=== PATIENT | female | born 1995 ===

== ENCOUNTER 2018-07-07 19:19 | Emergency (ER) | payer MEDICAID, OTHER ==
[2018-07-07 19:19] VITALS: BMI 29.2
--- NOTE | 2018-07-07 20:21 | C.PDOC ---
History Of Present Illness Patient reports recent high BP, taken on her mother's BP machine. States that she was prompted to take her pressure because for the past few days she has felt "weird", as well as fatigued, states "I've been yawning a lot". Reports d iscomfort on the right side of her head, but denies headache, states that "it is hard to explain, it just feels weird". Also reports that sometimes she gets "tingling all over my body". Denies any numbness or weakness to extremities. Able to ambulate. No dizziness, syncope, chest pain, dyspnea, nausea, vomiting. States that she was once diagnosed with HTN when she was several years ago, but has not needed any medication since. Time Seen by Provider: 07/07/18 19:44 Chief Complaint (Nursing): High Blood Pressure History Per: Patient Past Medical History Reviewed: Historical Data, Nursing Documentation, Vital Signs Vital Signs: Last Vital Signs Temp 98.1 F 07/07/18 19:30 Pulse 88 07/07/18 19:30 Resp 18 07/07/18 19:30 BP 160/101 H 07/07/18 19:30 Pulse Ox 97 07/07/18 19:30 - Medical History PMH: HTN Surgical History: No Surg Hx - [facility] Procedures ARTIF RUPT MEMBRANES NEC (03/29/14) MANUAL ASSIST DELIV NEC (03/29/14) MEDICAL INDUCTION LABOR (03/29/14) REPAIR OB LACERATION NEC (03/29/14) Family History: States: Unknown Family Hx - Social History Hx Alcohol Use: No Hx Substance Use: No - Immunization History Hx Tetanus Toxoid Vaccination: Yes Hx Influenza Vaccination: No Hx Pneumococcal Vaccination: No Review Of Systems Except As Marked, All Systems Reviewed And Found Negative. Constitutional: Negative for: Fever Cardiovascular: Negative for: Chest Pain, Palpitations, Light Headedness Respiratory: Negative for: Cough, Shortness of Breath Gastrointestinal: Negative for: Nausea, Vomiting, Abdominal Pain, Diarrhea Genitourinary: Negative for: Dysuria Musculoskeletal: Positive for: Neck Pain Skin: Negative for: Rash Neurological: Negative for: Weakness, Numbness, Change in Speech, Confusion, Altered Mental Status, Headache Physical Exam - Physical Exam Appears: Well, Non-toxic, No Acute Distress Skin: Normal Color, Warm, Dry Head: Atraumatic Eye(s): bilateral: Normal Inspection Oral Mucosa: Moist Neck: Normal, No Midline Cervical Tenderness, No Paracervical Tenderness Chest: Symmetrical, No Deformity Cardiovascular: Rhythm Regular Respiratory: Normal Breath Sounds Gastrointestinal/Abdominal: Normal Exam Neurological/Psych: Oriented x3, Normal Speech, Normal Motor, Normal Sensation Gait: Steady ED Course And Treatment - Laboratory Results Result Diagrams: 07/07/18 20:47 07/07/18 20:47 ECG: Interpreted By Me ECG Rhythm: Sinus Rhythm ECG Interpretation: Normal Interpretation Of ECG: Normal axis, normal intervals, no ST/T changes Rate From EC O2 Sat by Pulse Oximetry: 97 Medical Decision Making Medical Decision Making: Patient given ibuprofen PO for head/neck discomfort. EKG done and was unremarkable. Labs done and were unremarkable as well. Results discussed with patient. Advised outpatient followup for HTN. Return to the ED for any new or worsening symptoms. Repeat BP 140/80, improved without intervention. Stable for discharge home. Disposition - Disposition Disposition: HOME/ ROUTINE Disposition Time: 22:03 Condition: GOOD Additional Instructions: PORTER BUSTILLOS, thank you for letting us take care of you today. Your provider was Alyse Rick MD and you were treated for HIGH BLOOD PRESSURE/HEADACHE. The emergency medical care you received today was directed at your acute symptoms. If you were prescribed any medication, please fill it and take as directed. It may take several days for your symptoms to resolve. Return to the Emergency Department if your symptoms worsen, do not improve, or if you have any other problems. Please contact your doctor or call one of the physicians/clinics you have been referred to that are listed on the Patient Visit Information form that is included in your discharge packet. Bring any paperwork you were given at discharge with you along with any medications you are taking to your follow up visit. Our treatment cannot replace ongoing medical care by a primary care provider outside of the emergency department. Thank you for allowing the [facility] team to be part of your care today. If you had an X-Ray or CT scan: A Radiologist will review the ED reading if any change in treatment is needed we will contact you. If you had a blood, urine, or wound culture: It will take several days for the results, if any change in treatment is needed we will contact you. If you had an STI test: It will take 48 hours for the results. Please call after 1 week if you have not heard back. Prescriptions: Nitrofurantoin Macrocrystals [Macrobid] 100 mg PO BID #14 cap Instructions: High Blood Pressure (DC), Urinary Tract Infection, Adult (DC) Forms: [employer] (Peruvian) - Clinical Impression Clinical Impression: High blood pressure
[2018-07-07 20:52] LABS: BASO # 0.1 K/uL (0.0-0.2); BASO % 1.2 % (0.0-2.0); EOS # 0.2 K/uL (0.0-0.7); EOS % 3.3 % (0.0-4.0); HEMOGLOBIN 13.8 g/dL (11.0-16.0); LYMPH # 2.1 K/uL (1.0-4.3); LYMPH % 44.8 % (20.0-40.0); MEAN CELL VOLUME 93.1 fL (81.0-99.0); MEAN CORPUSCULAR HEMOGLOBIN 30.4 pg (27.0-31.0); MEAN CORPUSCULAR HGB CONC 32.7 g/dL (33.0-37.0); MEAN PLATELET VOLUME 8.8 fL (7.2-11.7); MONO # 0.3 K/uL (0.0-0.8); MONO % 7.2 % (0.0-10.0); NEUT % 43.5 % (50.0-75.0); NRBC % 0.1 % (0.0-2.0); RBC 4.53 Mil/uL (3.80-5.20); RED CELL DISTRIBUTION WIDTH 12.5 % (11.5-14.5); WHITE BLOOD COUNT 4.6 K/uL (4.8-10.8)
[2018-07-07 21:06] LABS: BLOOD UREA NITROGEN 15 mg/dL (7-17); CALCIUM 8.8 mg/dl (8.6-10.4); GFR NON-AFRICAN AMERICAN > 60
[2018-07-07 21:07] LABS: SQUAMOUS EPITHIAL 1 /hpf (0-5); URINE BACTERIA FEW (<OCC); URINE BILIRUBIN NEGATIVE (NEGATIVE); URINE BLOOD 2+ (NEGATIVE); URINE CLARITY Hazy (Clear); URINE COLOR Yellow (YELLOW); URINE GLUCOSE (UA) NORMAL (Normal); URINE LEUKOCYTE ESTERASE TRACE Leu/uL (Negative); URINE PROTEIN 1+ mg/dL (NEGATIVE)
[2018-07-07 22:37] VITALS: BP 140/80; PULSE 80; RESP 14; TEMP 98
[2018-07-08 04:18] VITALS: O2SAT 97
--- NOTE | 2018-07-08 20:18 | CARD ---
APPROVED REPORT Date of service: 07/07/2018 EKG Measurement Heart [id number] <Conclusion> Normal sinus rhythm Normal ECG
== END 2018-07-07 22:37 | disposition home or self-care (01) ==
LOC: C.ER 19:19
DX: I10 Essential (primary) hypertension (principal)